=== PATIENT | female | born 1995 | race Caucasian/White ===

== ENCOUNTER 2017-09-24 08:52 | Emergency (ER) | payer OTHER ==
[~2017-09-24] VITALS: Wt 54.4 kg
[~2017-09-24 08:52] MED LIST: BACTROBAN OINT0.9 GM; MOTRIN400 MG PO; MUCINEX600 MG PO; PREDNISONE20 MG PO; PREVACID15 MG; TYLENOL W/CODEI1 TA2 PO; XANAX0.25 MG PO; ZITHROMAX Z PA250 MG PO; ZITHROMAX Z-PA250 MG PO
[2017-09-24 09:49] LABS: BASO % 0.2 % (0.0-1.0); EOS # 0.1 10*3/uL (0.0-0.4); EOS % 1.1 % (1.0-4.0); HEMATOCRIT 41.4 % (37.0-47.0); HEMOGLOBIN 14.2 g/dl (12.0-16.0); LYMPH # 1.6 10*3/uL (1.3-4.4); LYMPH % 35.7 % (27.0-41.0); MEAN CELL VOLUME 91.6 fl (81.0-99.0); MEAN CORPUSCULAR HGB 31.4 pg (27.0-31.0); MEAN CORPUSCULAR HGB CONC 34.3 g/dl (33.0-37.0); MEAN PLATELET VOLUME 9.9 fl (9.6-12.3); MONO # 0.4 10*3/uL (0.1-1.0); MONO % 8.6 % (3.0-9.0); NEUT # 2.4 10*3/uL (2.3-7.9); NEUT % 54.2 % (47.0-73.0); PLATELET COUNT AUTOMATED 136 10*3/uL (130-400); RED BLOOD COUNT 4.52 10*6/uL (4.10-5.10); WHITE BLOOD COUNT 4.4 10*3/uL (4.8-10.8)
[2017-09-24 10:02] LABS: ALBUMIN 3.6 gm/dl (3.1-4.5); ALKALINE PHOSPHATASE 64 U/L (45-117); BUN 16 mg/dl (7-24); CHLORIDE 105 mmol/L (98-107); CREATININE 0.89 mg/dL (0.55-1.02); LIPASE 220 U/L (73-393); POTASSIUM 4.2 mmol/L (3.5-5.1); SGOT/AST 11 IU/L (3-35); SGPT/ALT 19 U/L (12-78); SODIUM 138 mmol/L (136-145)
[2017-09-24 10:21] LABS: BILIRUBIN NEGATIVE (NEGATIVE); BLOOD NEGATIVE (NEGATIVE); CLARITY SL CLOUDY (CLEAR); COLOR YELLOW (YELLOW); GLUCOSE NEGATIVE (NEGATIVE); KETONE NEGATIVE (NEGATIVE); LEUKO ESTERASE NEGATIVE (NEGATIVE); NITRITE NEGATIVE (NEGATIVE); PH 5.5 (5.0-9.0); UROBILINOGEN 0.2 E.U./dl (0.2-1.0)
[2017-09-24 10:44] LABS: BACTERIA 1+; WBC 0-2 wbc/hpf (0-5)
== END 2017-09-24 11:15 | disposition home or self-care (01) ==
LOC: ED 08:52
PROVIDERS: Emergency Medicine
DX: G89.29 Other chronic pain (principal); R10.12 Left upper quadrant pain; R11.0 Nausea; F17.200 Nicotine dependence, unspecified, uncomplicated

== ENCOUNTER → 2017-10-31 | Day surgery (SDC) | payer OTHER ==
[~2017-10-31] VITALS: Ht 160 cm; Wt 54.4 kg
[~2017-10-31] MED LIST changes: +Ranitidine Hyd150 MG PO
--- NOTE | ~2017-10-31 | O ---
[place], [place] OPERATIVE NOTE NAME: STARLA RICK UNIT #: [id number] ROOM: DOCTOR: SHELLY BOLDEN,MIYA BIRTHDATE: [birth year] DOS: 10/31/2017 GASTROENDOSCOPIC REPORT INDICATIONS: The patient has presented with diarrhea. The patient consumes at least 4 bottles of carbonated soda daily. PROCEDURE: Today's procedure part of investigation is colonoscopy plus polypectomy. PREMEDICATION: Versed and Diprivan. SCOPE: Olympus folding colonoscope 10L video. REPORT: After putting the patient in left lateral position and application of lubricant to the scope, the scope was introduced. Thereafter, under direct visualization, I advanced through the length of colon without difficulty. Base of the cecum explored. Appendiceal orifice identified, ileocecal valve defined. A small sessile polypoid lesion at the base of cecum with piecemeal polypectomy removed. The patient extubated, tolerated procedure well. IMPRESSION: Sessile colonic polyp. Base of cecum, status post piecemeal polypectomy. PLAN AND DISCUSSION: I will follow with this patient as an outpatient clinic to reassess her wellbeing and clinically management as outpatient. Otherwise, routinely with you in office visit with us p.r.n. I am recommending the patient to stay away from dairy product at this stage and we are starting her on ranitidine 150 mg 1 at bedtime, clinical reassessment. MIYA BRAVO MD CM:OPRECORD:OPERATIVE NOTE [id number] MIYA BRAVO MD 10/31/17 1214 interface
--- NOTE | ~2017-10-31 | O ---
[place], [place] OPERATIVE NOTE NAME: STARLA RICK UNIT #: [id number] ROOM: DOCTOR: MIYA BRAVO MD BIRTHDATE: [birth year] DOS: 10/31/2017 INDICATION: A 22-year-old patient who was presented with chief complaint of nausea, vomiting, and diarrhea. ALLERGIES: No known medication. FAMILY HISTORY: Noncontributory. PAST MEDICAL HISTORY: Migraine, cephalalgia. PAST SURGICAL HISTORY: Arthroscopies. PROCEDURE: Today's procedure part of investigation is panendoscopy and colonoscopy. PREMEDICATION: Versed and Diprivan. SCOPE: Olympus forward-viewing gastroscope Q10 video. REPORT: After putting the patient in left lateral position and application of lubricant to the scope, the scope was introduced. Thereafter, under direct visualization, I advanced through the length of esophagus without difficulty. Gastric pouch was entered. Gastritis was noticed. Duodenal bulb, second and third parts within normal limits. Antral biopsy obtained for H. pylori. The patient extubated, tolerated procedure well. IMPRESSION: Gastritis. PLAN AND DISCUSSION: Ranitidine 150 mg 1 at bedtime would suffice above management. We are going to proceed with colonoscopy as well. MIYA BRAVO MD CM:OPRECORD:OPERATIVE NOTE [id number] MIYA BRAVO MD 10/31/17 1207 interface
[2017-10-31 08:30] VITALS: BP 116/70
[2017-10-31 09:54] VITALS: BP 102/58
[2017-10-31 10:10] VITALS: BP 103/53
[2017-10-31 10:28] VITALS: BP 100/53
== END | disposition home or self-care (01) ==
LOC: SDC 10-26 08:45
DX: K63.5 Polyp of colon (principal); K29.50 Unspecified chronic gastritis without bleeding; G43.909 Migraine, unspecified, not intractable, without status migrainosus; K21.9 Gastro-esophageal reflux disease without esophagitis; Z87.891 Personal history of nicotine dependence; Z98.890 Other specified postprocedural states; Z80.9 Family history of malignant neoplasm, unspecified

== ENCOUNTER → 2017-11-13 | Outpatient (CLI) | payer OTHER | END | disposition home or self-care (01) | LOC: US 09:30 | DX: R10.84 Generalized abdominal pain (principal) ==

== ENCOUNTER 2019-04-22 11:03 | Emergency (ER) | payer OTHER ==
[~2019-04-22] VITALS: Ht 162.5 cm; Wt 60.8 kg
[2019-04-22] MEDS ORDERED: Motrin,Rufen800 MG PO (13:10)
[2019-04-24] MEDS ORDERED: PRENATAL TABLE1 EAC2 PO (15:24)
== END 2019-04-22 13:13 | disposition home or self-care (01) ==
LOC: ED 11:03
DX: S20.211A Contusion of right front wall of thorax, initial encounter (principal); V89.9XXA Person injured in unspecified vehicle accident, initial encounter; Y93.89 Activity, other specified; Y92.828 Other wilderness area as the place of occurrence of the external cause; Y99.8 Other external cause status

== ENCOUNTER → 2019-05-02 | Outpatient (CLI) | payer OTHER ==
[~2019-05-02] MED LIST changes: +Motrin,Rufen800 MG PO; +PRENATAL TABLE1 EAC2 PO
== END | disposition home or self-care (01) ==
LOC: US 15:28
DX: Z34.01 Encounter for supervision of normal first pregnancy, first trimester (principal); Z3A.01 Less than 8 weeks gestation of pregnancy

== ENCOUNTER → 2019-08-22 | Outpatient (CLI) | payer OTHER | END | disposition home or self-care (01) | LOC: US 14:29 | DX: Z34.02 Encounter for supervision of normal first pregnancy, second trimester (principal); Z3A.22 22 weeks gestation of pregnancy ==

== ENCOUNTER → 2019-10-22 | Outpatient (CLI) | payer OTHER | END | disposition home or self-care (01) | LOC: US 14:59 | DX: Z34.03 Encounter for supervision of normal first pregnancy, third trimester (principal); Z3A.31 31 weeks gestation of pregnancy ==

== ENCOUNTER → 2022-07-07 | Outpatient (CLI) | payer OTHER | END | disposition home or self-care (01) | LOC: LAB 11:36 | PROVIDERS: ATTEND Internal Medicine Nephrology | DX: J02.9 Acute pharyngitis, unspecified (principal) ==